=== PATIENT | male | born 2000 | race Caucasian/White ===

== ENCOUNTER 2023-09-17 02:47 | Emergency (ER) | payer BC ==
[2023-09-17 02:51] VITALS: BP 126/83; PULSE 78; RESP 16; TEMP 97.9
[2023-09-17] MEDS ORDERED: AZITHROMYCIN 500 MG TABLET ONE (03:49)
[2023-09-17] MEDS: AZITHROMYCIN 500 MG TABLET PO ONE (03:55)
== END 2023-09-17 03:55 | disposition home or self-care (01) ==
LOC: FER 02:47
DX: J40 Bronchitis, not specified as acute or chronic (principal); J02.9 Acute pharyngitis, unspecified; R06.02 Shortness of breath; R50.9 Fever, unspecified; R05.9 Cough, unspecified; Z20.822 Contact with and (suspected) exposure to COVID-19
CPT/HCPCS: 0241U-QW; 71046-TC-FY; 99284-25